=== PATIENT | female | born 1980 | race Caucasian/White ===

== ENCOUNTER 2016-07-04 19:24 | Inpatient (IN) | payer OTHER ==
[~2016-07-04] VITALS: Ht 170.1 cm; Wt 52.2 kg
--- NOTE | ~2016-07-04 | EKG ---
[place], [place] ELECTROCARDIOGRAM REPORT NAME: MIKE KYLE UNIT #: [id number] ROOM: 502 DOCTOR: ELSIE BROCK MD BIRTHDATE: [birth year] DOS: 07/04/2016 TIME: 20:42 Normal sinus rhythm at rate 91, normal electrocardiogram. ELSIE BROCK MD CM:EKGRPT:ELECTROCARDIOGRAM REPORT [id number] ELSIE BROCK MD
[~2016-07-04 19:24] MED LIST: ATIVAN; ATIVAN1 MG PO; ATIVAN2 MG PO; B-1100 MG PO; BACTRIM DS 8001 TA1 PO; CATAFLAM50 MG PO; DILANTIN100 MG PO; KLONOPIN1 MG PO; NAPROSYN500 MG PO; PROZAC20 MG; VICODIN 5/500 505 MG PO
[2016-07-04 19:35] VITALS: BP 127/94
[2016-07-04 20:12] LABS: BASO % 0.6 % (0.0-1.0); EOS # 0.1 10*3/uL (0.0-0.4); EOS % 1.2 % (1.0-4.0); HEMATOCRIT 36.5 % (37.0-47.0); HEMOGLOBIN 12.7 g/dl (12.0-16.0); LYMPH % 41.5 % (27.0-41.0); MEAN CELL VOLUME 92.4 fl (81.0-99.0); MEAN CORPUSCULAR HGB 32.2 pg (27.0-31.0); MEAN CORPUSCULAR HGB CONC 34.8 g/dl (33.0-37.0); MONO # 0.4 10*3/uL (0.1-1.0); MONO % 7.5 % (3.0-9.0); NEUT # 2.4 10*3/uL (2.3-7.9); PLATELET COUNT AUTOMATED 226 10*3/uL (130-400); RED BLOOD COUNT 3.95 10*6/uL (4.10-5.10); RED CELL DISTRI WIDTH 14.2 % (0-14.5); WHITE BLOOD COUNT 4.9 10*3/uL (4.8-10.8)
[2016-07-04 20:30] LABS: ALBUMIN 3.5 gm/dl (3.1-4.5); ALKALINE PHOSPHATASE 82 U/L (45-117); BILIRUBIN, TOTAL 0.3 mg/dl (0.2-1.0); BUN 8 mg/dl (7-24); CARBON DIOXIDE 27 mmol/L (21-32); CHLORIDE 109 mmol/L (98-107); EST GLOM FILT AFRICAN AMERICAN > 60 ml/min; GLUCOSE 128 mg/dL (65-99); POTASSIUM 3.6 mmol/L (3.5-5.1); SGOT/AST 90 IU/L (3-35); SGPT/ALT 83 U/L (12-78); SODIUM 144 mmol/L (136-145)
[2016-07-04 21:28] LABS: INTERNATIONAL NORM RATIO 0.9 (2.0-3.5); PROTHROMBIN TIME 9.4 SECONDS (9.0-12.4)
[2016-07-04 22:00] VITALS: BP 124/76
[2016-07-04 23:55] VITALS: BP 124/76
[2016-07-05 06:08] LABS: BILIRUBIN NEGATIVE (NEGATIVE); BLOOD NEGATIVE (NEGATIVE); CLARITY CLEAR (CLEAR); COLOR YELLOW (YELLOW); GLUCOSE NEGATIVE (NEGATIVE); KETONE NEGATIVE (NEGATIVE); LEUKO ESTERASE NEGATIVE (NEGATIVE); NITRITE NEGATIVE (NEGATIVE); PROTEIN NEGATIVE (NEGATIVE); SPECIFIC GRAVITY <= 1.005 (1.005-1.030); UROBILINOGEN 0.2 E.U./dl (0.2-1.0)
[2016-07-05 06:15] LABS: URINE REFLEX COMMENT NO (NO); WBC 0-2 wbc/hpf (0-5)
[2016-07-05 06:29] LABS: URINE AMPHETAMINES < 1000 (1000ng/ml)
[2016-07-05 06:31] LABS: URINE BARBITURATES < 200 (200ng/ml); URINE COCAINE < 300 (300ng/ml)
== END 2016-07-05 08:00 | disposition left against medical advice (07) | DRG 894 ==
LOC: ED 19:24 → EDHOLD 20:14 → 5E 20:14
PROVIDERS: Registered Nurse; Student in an Organized Health Care Education/Training Program
DX: F10.239 Alcohol dependence with withdrawal, unspecified (principal); E83.51 Hypocalcemia; F19.10 Other psychoactive substance abuse, uncomplicated; R00.0 Tachycardia, unspecified; F17.200 Nicotine dependence, unspecified, uncomplicated; Z88.0 Allergy status to penicillin; Z88.8 Allergy status to other drugs, medicaments and biological substances; Z91.040 Latex allergy status

== ENCOUNTER 2019-09-23 23:50 | Emergency (ER) | payer OTHER ==
[2019-09-23 23:54] VITALS: BP 127/85
== END 2019-09-24 01:08 | disposition home or self-care (01) ==
LOC: ED 23:50
DX: S71.112A Laceration without foreign body, left thigh, initial encounter (principal); F10.129 Alcohol abuse with intoxication, unspecified; Z88.8 Allergy status to other drugs, medicaments and biological substances; Z79.899 Other long term (current) drug therapy; W25.XXXA Contact with sharp glass, initial encounter; Y93.89 Activity, other specified; Y92.89 Other specified places as the place of occurrence of the external cause; Y99.8 Other external cause status

== ENCOUNTER 2019-10-08 14:16 | Inpatient (IN) | payer OTHER ==
[~2019-10-08] VITALS: Ht 170.1 cm; Wt 59.6 kg
[2019-10-08 14:16] VITALS: BP 112/82
[2019-10-08 15:45] VITALS: BP 115/77
[2019-10-08 15:55] LABS: ALBUMIN 3.7 gm/dl (3.1-4.5); ALKALINE PHOSPHATASE 75 U/L (45-117); BUN 8 mg/dl (7-24); CHLORIDE 106 mmol/L (98-107); CREATININE 0.46 mg/dL (0.55-1.02); POTASSIUM 4.1 mmol/L (3.5-5.1); SGOT/AST 148 IU/L (3-35); SGPT/ALT 82 U/L (12-78); SODIUM 139 mmol/L (136-145); TOTAL PROTEIN 8.6 gm/dL (6.4-8.2)
[2019-10-08 16:20] LABS: BASO % 0.4 % (0.0-1.0); EOS % 0.2 % (1.0-4.0); LYMPH # 1.6 10*3/uL (1.3-4.4); LYMPH % 35.2 % (27.0-41.0); MEAN CELL VOLUME 96.7 fl (81.0-99.0); MEAN CORPUSCULAR HGB 31.6 pg (27.0-31.0); MEAN CORPUSCULAR HGB CONC 32.7 g/dl (33.0-37.0); MEAN PLATELET VOLUME 9.7 fl (9.6-12.3); MONO # 0.3 10*3/uL (0.1-1.0); MONO % 5.5 % (3.0-9.0); NEUT # 2.7 10*3/uL (2.3-7.9); NEUT % 58.5 % (47.0-73.0); PLATELET COUNT AUTOMATED 115 10*3/uL (130-400); RED BLOOD COUNT 4.24 10*6/uL (4.10-5.10); RED CELL DISTRI WIDTH 17.1 % (0-14.5); WHITE BLOOD COUNT 4.6 10*3/uL (4.8-10.8)
[2019-10-08 16:53] LABS: BILIRUBIN NEGATIVE (NEGATIVE); BLOOD 1+ (NEGATIVE); CLARITY CLEAR (CLEAR); COLOR YELLOW (YELLOW); GLUCOSE NEGATIVE (NEGATIVE); KETONE NEGATIVE (NEGATIVE); LEUKO ESTERASE NEGATIVE (NEGATIVE); NITRITE NEGATIVE (NEGATIVE); UROBILINOGEN 0.2 E.U./dl (0.2-1.0)
[2019-10-08 16:55] LABS: URINE AMPHETAMINES < 1000 (1000ng/ml); URINE BARBITURATES < 200 (200ng/ml); URINE BENZODIAZEPINES < 200 (200ng/ml); URINE CANNABINOIDS (THC) < 50 (50ng/ml); URINE COCAINE < 300 (300ng/ml); URINE METHADONE < 300 (300ng/ml); URINE OPIATES < 300 (300ng/ml)
[2019-10-08 16:56] LABS: URINE PHENCYCLIDINE < 25 (25ng/ml)
[2019-10-08 16:57] VITALS: BP 111/75
[2019-10-08 17:13] LABS: BACTERIA 1+
[2019-10-08 17:15] VITALS: BP 110/74
[2019-10-08 18:12] VITALS: BP 110/82
--- NOTE | 2019-10-08 18:51 | NUR ---
HEALING LACERATION AND SUTURES TO LT UPPER THIGH. SHE STATES SUTURES ARE TO COME OUT IN 1-2 DAYS. SHE IS REFUSING WOUND PHOTOS. OLD HEALING ABRASION TO CHEEK.
--- NOTE | 2019-10-08 19:04 | NUR ---
PT AWAITING ADMISSION TO ROOM 526.
[2019-10-08 19:09] LABS: LIPASE 425 U/L (73-393)
[2019-10-08 19:11] LABS: BETA-HCG, QUANT < 1.0 mIU/mL (1-3)
--- NOTE | 2019-10-08 19:25 | NUR ---
DR WILSON NOTIFIED OF PT ELEVATED TROPONIN LEVEL.
[2019-10-08 19:45] VITALS: BP 111/75
--- NOTE | 2019-10-08 19:45 | NUR ---
A 39, admitted to 5E, under the services of BLAISE Almazan DO with a diagnosis of ALCOHOL INTOXICATION, TACHYCARDIA. Chief complaint is ETOH INTOXICATION. Patient arrived via bed from ER. Monitor applied. Initial assessment completed. Vital signs taken and recorded. BLAISE ALMAZAN DO notified of admission to the unit. Orders received. See assessment for past medical history, medications and allergies. Patient and/or family oriented to unit. [address] visitation policy reviewed. Clothing/patient valuable form completed. NADEEM NELSON
[2019-10-08] MEDS ORDERED: TOPAMAX100 M1 PO (22:28)
--- NOTE | 2019-10-08 23:19 | NUR ---
DR. WILSON NOTIFIED OF CRITICAL TROPONIN OF 0.060.
[2019-10-09] VITALS: BP 112/78
--- NOTE | 2019-10-09 00:55 | NUR ---
DR5. KATIE NOTIFIED OF CRITICAL TROPONIN OF 0.122.
--- NOTE | 2019-10-09 01:10 | NUR ---
DR. MCKEON'S ANSWERING SERVICE NOTIFIED OF CONSULT FOR PATIENT FOR ELEVATED TROPONINS AND ALCOHOL WITHDRAWAL.
--- NOTE | 2019-10-09 03:35 | NUR ---
DR. WILSON NOTIFIED OF CRITICAL TROPONIN OF 0.099.
[2019-10-09 06:38] LABS: BASO % 0.3 % (0.0-1.0); EOS % 0.9 % (1.0-4.0); HEMATOCRIT 33.2 % (37.0-47.0); LYMPH # 1.3 10*3/uL (1.3-4.4); LYMPH % 40.1 % (27.0-41.0); MEAN CORPUSCULAR HGB 31.6 pg (27.0-31.0); MEAN CORPUSCULAR HGB CONC 34.3 g/dl (33.0-37.0); MONO # 0.4 10*3/uL (0.1-1.0); MONO % 11.8 % (3.0-9.0); NEUT # 1.5 10*3/uL (2.3-7.9); NEUT % 46.6 % (47.0-73.0); PLATELET COUNT AUTOMATED 100 10*3/uL (130-400); RED BLOOD COUNT 3.61 10*6/uL (4.10-5.10); RED CELL DISTRI WIDTH 16.5 % (0-14.5); WHITE BLOOD COUNT 3.2 10*3/uL (4.8-10.8)
[2019-10-09 06:45] LABS: ACT PARTIAL THROMBO TIME 23.1 SECONDS (20.0-32.1); INTERNATIONAL NORM RATIO 0.9 (2.0-3.5)
[2019-10-09 07:07] LABS: ALBUMIN 3.1 gm/dl (3.1-4.5); ALKALINE PHOSPHATASE 59 U/L (45-117); BUN 8 mg/dl (7-24); CHLORIDE 103 mmol/L (98-107); CHOLESTEROL 251 mg/dL (<200); CREATININE 0.46 mg/dL (0.55-1.02); FREE T4 0.71 ng/dl (0.76-1.46); HDL CHOLESTEROL 80 mg/dl (40-60); LDL CHOLESTEROL 154 mg/dL (9-159); POTASSIUM 3.2 mmol/L (3.5-5.1); SGOT/AST 96 IU/L (3-35); SGPT/ALT 67 U/L (12-78); SODIUM 137 mmol/L (136-145); TOTAL PROTEIN 7.1 gm/dL (6.4-8.2); TRIGLYCERIDES 85 mg/dl (<150); VLDL CHOLESTEROL 17 mg/dL (6-40)
[2019-10-09 07:12] LABS: THYROID STIM HORMONE (HS) 0.923 uIU/ml (0.358-4.75)
--- NOTE | 2019-10-09 07:30 | NUR ---
TOOK OVER CARE OF PT AT THIS TIME. PT RESTING IN BED. IV FLUIDS INFUSING. HOB ELEVATED. RESPIRATIONS EASY AND UNLABORED ON ROOM AIR. PT STATES THAT SHE FEELS THAT SHE IS HAVING WITHDRAWAL SYMPTOMS. PT NOTIIFED THAT SHE IS DUE FOR ATIVAN AND THAT THIS NURSE WILL BE BACK INTO ROOM WITH MEDICATION. NO OTHER S/S OF DISTRESS NOTED. WILL CONTINUE TO MONITOR. SAFETY MEASURES IN PLACE. CALL LIGHT IN REACH.
[2019-10-09 08:00] VITALS: BP 130/96
--- NOTE | 2019-10-09 08:38 | NUR ---
PT GIVEN ZOFRAN VIA IV AND BENTYL AT THIS TIME FOR C/O NAUSEA AND STOMACH CRAMPS. WILL MONITOR FOR EFFECTIVENESS OF MEDICATION. PT RESTING; CALL LIGHT IN REACH.
--- NOTE | 2019-10-09 08:50 | NUR ---
ROBAXIN AND IBUPROFEN GIVEN FOR MUSCLE ACHES AND HEADACHE. WILL MONITOR FOR EFFECTIVENESS OF MEDICATION. CALL LIGHT IN REACH.
--- NOTE | 2019-10-09 09:08 | NUR ---
PHYSICAL THERAPY PT evaluation attempted, pt currently unavaliable at this time being seen by physician and nsg. Will attempt again at a later time. Thank you. Luis Felipe Hairston SPT [facility]
--- NOTE | 2019-10-09 09:10 | NUR ---
ATIVAN 1 MG VIA IV AT THIS TIME GIVEN FOR INCREASED ANXIETY AND INCREASED WITHDRAWAL S/S. WILL MONITOR FOR EFFECTIVENESS OF MEDICATION. IV FLUIDS INFUSING. WILL CONTINUE TO MONITOR. CALL LIGHT IN REACH.
--- NOTE | 2019-10-09 09:15 | NUR ---
OT NOTE Occupational therapy order received and chart reviewed. Attempted patient evaluation this AM however MD and nursing in room. Patient had complaints of dizziness and deferred therapy at this time. Will check back at a later time for completion of an OT evaluation. Thank you. Mechelle Stone, OTR/L
--- NOTE | 2019-10-09 09:38 | NUR ---
PT STATES THAT ZOFRAN AND BENTYL ARE SOMEWHAT EFFECTIVE. WILL MONITOR PT. CALL LIGHT IN REACH.
--- NOTE | 2019-10-09 09:50 | NUR ---
PT STATES THAT ROBAXIN AND IBUPROFEN ARE "SOMEWHAT EFFECTIVE".
--- NOTE | 2019-10-09 09:57 | NUR ---
PT REFUSING ORTHOSTATIC BLOOD PRESSURES AT THIS TIME DUE TO NOT FEELING WELL AND STATES THAT SHE IS "UNABLE TO SIT UP AT THIS TIME". WILL OBTAIN ORTHOSTATIC BLOOD PRESSURES WHEN PT AGREES. PT ALSO REFUSING SUTURE REMOVAL AT THIS TIME; WILL ATTEMPT SUTURE REMOVAL AT A LATER TIME TODAY.
--- NOTE | 2019-10-09 10:10 | NUR ---
IV ATIVAN EFFECTIVE AT THIS TIME.
--- NOTE | 2019-10-09 10:35 | NUR ---
PHYSICAL THERAPY Attempted to see pt later in the AM, per nurse pt still dizzy/nauseaated to defer therapy at this time and check back in the afternoon. Myra Cruz PT
--- NOTE | 2019-10-09 10:50 | NUR ---
OT NOTE Occupational therapy order received and chart reviewed. Discussed with nursing, patient is not approriate for an OT evaluation at this time due to increased dizziness and nausea with movement. Will check back later this date. Thank you. Mechelle Stone OTR/L
--- NOTE | 2019-10-09 11:50 | NUR ---
ZACHARY PARKER CT NOTIFIED THAT PT STATES THAT SHE IS UNABLE TO DRINK READI CAT. MANAGER [employer]LLIGENCE STATES TO NOTIFY PHYSICIAN OF THIS.
[2019-10-09 12:00] VITALS: BP 142/98
--- NOTE | 2019-10-09 12:00 | NUR ---
PT NOTIFIED THAT SHE IS NPO AT THIS TIME FOR CT OF ABDOMEN/PELVIS.
--- NOTE | 2019-10-09 12:09 | NUR ---
DR SCHNEIDER NOTIFIED THAT PT STATES THAT DOES NOT FEEL SHE IS ABLE TO DRINK READI CAT FOR CT OF ABDOMEN/PELVIS. PHYSICIAN STATES TO PLACE A ONE TIME DOSE OF 4 MG ZOFRAN VIA IV NOW, MEDICATE PT, AND THEN HAVE PT ATTEMPT TO DRINK READI CAT. WILL MEDICATE PT AND THEN GIVE PT READICAT.
--- NOTE | 2019-10-09 12:56 | NUR ---
PHYSICAL THERAPY PT evaluation attempted, pt not feeling well at this time, per nsg going to get a CT of abdomen to look for possible causes of the extreme nausea. Will attempt again at a later time/date. Thank you. Luis Felipe Hairston SPT [facility]
--- NOTE | 2019-10-09 13:03 | NUR ---
OT NOTE Occupational therapy order received and chart reviewed. Per discussion with patient, she is continuing to not feel well this afternoon. Per nurse, patient will be going for a CT of the abdomen soon. Will defer until tomorrow for an OT evaluation. Thank you. Mechelle Stone, OTR/L
--- NOTE | 2019-10-09 13:12 | NUR ---
Professor Of English in to talk to patient. Patient states lives at home with her boyfriend. There are basement steps in the home. Physician: Dr. Cates Pharmacy: [facility] Home health services: none Patient's level of ADLs: INDEPENDENT Patient has working utilities: yes DME: none Follow-up physician's appointment after d/c: will be made by the hospitalist nurse director upon discharge Does patient want to access PORTAL?: no Discharge plan discussed with patient. She lives at home with her boyfriend. She is independent in her ADLs and ambulation. Discussed [facility] and she states she has been following with a treatment program in [place] for about a month but she only got to see someone last week. She is unsure of the name. Discussed any home health care services that may be needed once she is discharged and she declines. When medically stable she will be discharged to home. She states at this time she is unsure of how she will get home. RANDALL PATRICK
--- NOTE | 2019-10-09 14:45 | NUR ---
ZACHARY FROM CT NOTIFIED THAT PHYSICIAN STATES THAT IT IS OKAY THAT PT DID NOT DRINK READI CAT BUT WOULD LIKE TO DO IV CONTRAST. PSYCHOLOGICAL AIDE STATES THAT CT ORDER NEEDS CHANGED TO CT OF ABD/PELVIS WITH CONTRAST. WILL PLACE APPROPRIATE ORDERS.
[2019-10-09 16:00] VITALS: BP 144/95
--- NOTE | 2019-10-09 16:22 | NUR ---
MOTRIN, BENTYL, AND ZOFRAN GIVEN FOR COMPLAITNS OF PAIN IN STOMACH, MUSCLE ACHES, AND NAUSEA. WILL MONITOR.
--- NOTE | 2019-10-09 16:45 | NUR ---
PATIENT REFUSING TO HAVE SUTURES REMOVED AT THIS TIME DUE TO FEELING NAUSEATED. WILL REATTEMPT LATER.
--- NOTE | 2019-10-09 17:22 | NUR ---
PER PATIENT, PRN MEDS HAVE BEEN EFFECTIVE. CALL LIGHT IS WITHIN REACH.
--- NOTE | 2019-10-09 17:45 | NUR ---
PATIENT REFUSING TO HAVE CT SCAN; ATTEMPTED TO NOTIFY THE DR BUT THEY DIDNT ANSWER.
[2019-10-09 20:00] VITALS: BP 137/97
--- NOTE | 2019-10-09 20:42 | NUR ---
PATIENT MEDICATED WITH ATIVAN 1MG IV FOR COMPLAINTS OF ANXIETY. WILL CONTINUE TO MONITOR. CALL LIGHT IN REACH.
--- NOTE | 2019-10-09 21:30 | NUR ---
ATIVAN EFFECTIVE. PATIENT SLEEPING AT THIS TIME.
[2019-10-09 21:41] LABS: BILIRUBIN NEGATIVE (NEGATIVE); CLARITY CLEAR (CLEAR); COLOR YELLOW (YELLOW); GLUCOSE NEGATIVE (NEGATIVE); KETONE TRACE (NEGATIVE)
[2019-10-09 21:42] LABS: BLOOD NEGATIVE (NEGATIVE); LEUKO ESTERASE NEGATIVE (NEGATIVE); NITRITE NEGATIVE (NEGATIVE); SPECIFIC GRAVITY 1.005 (1.005-1.030); UROBILINOGEN 0.2 E.U./dl (0.2-1.0)
[2019-10-09 21:46] LABS: BACTERIA TRACE; EPITHELIAL CELLS 0-2; RBC 0-2 rbc/hpf (0-2); WBC 0-2 wbc/hpf (0-5)
[2019-10-10] VITALS (7 sets, daily range): BP systolic 126–160; BP diastolic 80–107
--- NOTE | 2019-10-10 00:08 | NUR ---
PATIENT MEDICATED WITH ATIVAN FOR ANXIETY, ROBAXIN FOR MUSCLE PAIN AND MOTRIN FOR GENERALIZED PAIN. WILL MONITOR FOR EFFECTIVENESS. CALL LIGHT IN REACH.
--- NOTE | 2019-10-10 00:39 | NUR ---
ATIVAN, ROBAXIN AND MOTRIN EFFECTIVE. MEDICATED WITH IMODIUM 4MG FOR DIARRHEA AT THIS TIME. WILL CONTINUE TO MONITOR.
--- NOTE | 2019-10-10 05:41 | NUR ---
PATIENT PULLED IV OUT. REFUSES TO HAVE ANOTHER ONE STARTED AT THIS TIME. SAYS SHE IS FINALLY SLEEPING AND DOES NOT WANT BOTHERED. STATED SHE WOULD LET DAYLIGHT PUT ONE IN LATER. DR. WILSON NOTIFIED.
[2019-10-10 06:21] LABS: BASO % 0.3 % (0.0-1.0); EOS # 0.1 10*3/uL (0.0-0.4); EOS % 1.3 % (1.0-4.0); HEMATOCRIT 36.4 % (37.0-47.0); LYMPH # 0.8 10*3/uL (1.3-4.4); LYMPH % 22.1 % (27.0-41.0); MEAN CELL VOLUME 93.1 fl (81.0-99.0); MEAN CORPUSCULAR HGB 31.7 pg (27.0-31.0); MEAN CORPUSCULAR HGB CONC 34.1 g/dl (33.0-37.0); MEAN PLATELET VOLUME 10.1 fl (9.6-12.3); MONO # 0.3 10*3/uL (0.1-1.0); MONO % 7.5 % (3.0-9.0); NEUT # 2.6 10*3/uL (2.3-7.9); NEUT % 68.3 % (47.0-73.0); PLATELET COUNT AUTOMATED 102 10*3/uL (130-400); RED BLOOD COUNT 3.91 10*6/uL (4.10-5.10); RED CELL DISTRI WIDTH 16.2 % (0-14.5); WHITE BLOOD COUNT 3.8 10*3/uL (4.8-10.8)
[2019-10-10 06:41] LABS: BUN 6 mg/dl (7-24); CHLORIDE 104 mmol/L (98-107); CREATININE 0.46 mg/dL (0.55-1.02); POTASSIUM 3.4 mmol/L (3.5-5.1); SODIUM 133 mmol/L (136-145)
--- NOTE | 2019-10-10 08:12 | NUR ---
Shift chart check completed.
--- NOTE | 2019-10-10 08:59 | NUR ---
COMPLAIN OF WITHDRAWL SYMPTOMS, ANXIETY, COLD/HOT, TREMORS, ABDOMINAL PAIN/NAUSEA, MUSCLE ACHES. PT IV CAME OUT OVERNIGHT AND CONTINUES TO REFUSE IV AT THIS TIME. PRN MEDICATIONS THAT WERE AVAILABLE GIVEN: ROBAXIN/BENTYL. PHYSICIAN MADE AWARE PT REFUSE IV, REQUEST ORAL ZOFRAN. PT GIVEN SCHEDULED ORAL ATIVAN AT THIS TIME. PT STATES IF SHE FEELS SHE NEEDS IV ATIVAN, WILL BE OKAY TO HAVE IV PLACED.
--- NOTE | 2019-10-10 09:00 | NUR ---
CM in to see patient. No new needs or request at this time. Discussed home health care services and she declines. CM will continue to follow for any discharge planning needs. When medically stable she will be discharged to home.
--- NOTE | 2019-10-10 09:26 | NUR ---
PT CONTINUES TO REFUSE CT ABDOMEN. DR. SCHNEIDER IN TO TALK WITH PATIENT. WILL CANCEL TESTING AT THIS TIME
--- NOTE | 2019-10-10 10:03 | NUR ---
PT STATES PRN MEDICATIONS HELPING AT THIS TIME. NO OTHER NEEDS STATED BY PATIENT.
--- NOTE | 2019-10-10 10:35 | NUR ---
OT NOTE Occupational therapy order received and chart reviewed. Per discussion with the patient and nursing, patient has been independently completing ADLs, bathroom ADLs, and transfers within the room. No OT eval indicated this date. Will continue to follow patient during this hospital stay. Thank you. Mechelle Stone, OTR/L
--- NOTE | 2019-10-10 10:39 | NUR ---
PHYSICAL THERAPY PT evaluation attempted, pt deffered due feeling that she did not need services at this time. Per pt and nsg pt is up in room ambulating to bathroom on own. Plan to follow through care at hosptial if pts functional status declines. Thank you. Luis Felipe Hairston SPT [facility] PT
--- NOTE | 2019-10-10 12:57 | NUR ---
PT COMPLAIN OF ANXIETY AND NAUSEA. PRN MEDICATIONS GIVEN
--- NOTE | 2019-10-10 13:40 | NUR ---
PT STATES CAN TAKE SUTURES OUT SOMETIME TODAY, "JUST NOT NOW" EDUCATED PATIENT THAT IF SUTURES STAY IN TOO LONG, SKIN WILL GROW OVER AND MAKE REMOVAL MORE DIFFICULT. PT AGREES THAT THEY CAN COME OUT TODAY.
--- NOTE | 2019-10-10 13:42 | NUR ---
AFTERNOON BLOOD PRESSURE ELEVATED. PT REQUESTED TO "WAIT A LITTLE LONGER" TO RECHECK MANUAL BLOOD PRESSURE "UNTIL I FEEL BETTER"
--- NOTE | 2019-10-10 13:43 | NUR ---
PT STATES PRN MEDICATIONS "GENNARO EFFECTIVE"
--- NOTE | 2019-10-10 17:07 | NUR ---
PT COMPLAIN OF STOMACH PAINS, MUSCLE ACHES, PRN MEDICATIONS GIVEN.
--- NOTE | 2019-10-10 18:00 | NUR ---
PT STATES MEDICATIONS EFFECTIVE "A LITTLE BIT". NO OTHER NEEDS STATED AT THIS TIME
--- NOTE | 2019-10-10 19:30 | NUR ---
IN TO ASSESS PATIENT AT THIS TIME. STATES THAT SHE IS FEELING "FAIRLY WELL". ASSESSMENT IS NEGATIVE OTHER THAN PATIENT COMPLAINT OF ABDOMINAL PAIN, BUT SHE STATES THIS "HAPPENS ALL THE TIME" DUE TO HER "OVARIAN CYSTS" AND "GOES AWAY IN A WEEK OR SO". WILL CONTINUE TO MONITOR AND REASSESS. NO TREMORS NOTED ON ASSESSMENT, PATIENT LAYING COMFORTABLE IN BED. STILL REFUSING SUTURE REMOVAL AT THIS TIME AND STATES THEY CAN DO IT "BEFORE SHE IS DISCHARGED".
--- NOTE | 2019-10-10 22:51 | NUR ---
ATICAN, BENTYL, AND ROBAXIN ADMINISTERED FOR PT C/O ANXIOUSNESS, MUSCLE CRAMPS, AND STOMACH CRAMPS. WILL MONITOR.
--- NOTE | 2019-10-10 23:50 | NUR ---
PT ASLEEP AT THIS TIME. NO S/S OF DISCOMFORT OR DISTRESS. WILL MONITOR.
[2019-10-11] VITALS: BP 118/83
[2019-10-11 07:19] LABS: BASO % 0.5 % (0.0-1.0); EOS # 0.1 10*3/uL (0.0-0.4); EOS % 1.7 % (1.0-4.0); HEMATOCRIT 39.1 % (37.0-47.0); LYMPH # 0.9 10*3/uL (1.3-4.4); LYMPH % 21.5 % (27.0-41.0); MEAN CELL VOLUME 93.3 fl (81.0-99.0); MEAN CORPUSCULAR HGB 31.3 pg (27.0-31.0); MEAN CORPUSCULAR HGB CONC 33.5 g/dl (33.0-37.0); MEAN PLATELET VOLUME 10.9 fl (9.6-12.3); MONO # 0.3 10*3/uL (0.1-1.0); MONO % 7.8 % (3.0-9.0); NEUT # 2.8 10*3/uL (2.3-7.9); NEUT % 67.8 % (47.0-73.0); PLATELET COUNT AUTOMATED 106 10*3/uL (130-400); RED BLOOD COUNT 4.19 10*6/uL (4.10-5.10); RED CELL DISTRI WIDTH 15.9 % (0-14.5); WHITE BLOOD COUNT 4.1 10*3/uL (4.8-10.8)
[2019-10-11 07:34] LABS: BUN 7 mg/dl (7-24); CHLORIDE 106 mmol/L (98-107); CREATININE 0.48 mg/dL (0.55-1.02); SODIUM 134 mmol/L (136-145)
[2019-10-11 08:00] VITALS: BP 110/88
--- NOTE | 2019-10-11 08:29 | NUR ---
MEDICATED WITH PRN PO MOTRIN, ROBAXIN, VISTARIL AND BENTYL FOR HEADACHE, ABDOMINAL PAIN AND ANXIETY
--- NOTE | 2019-10-11 09:20 | NUR ---
PRN PO MOTRIN AND ROBAXIN EFFECTIVE, BENTYL EFFECTIVE, VISTARIL NOT EFFECTIVE, MEDICATED WITH PO ATIVAN X 1 ORDERED FOR ANXIETY.
--- NOTE | 2019-10-11 10:00 | NUR ---
PRN PO ATIVAN EFFECTIVE, PER PATIENT.
--- NOTE | 2019-10-11 10:00 | NUR ---
SUTURES TO LEFT POSTERIOR THIGH REMOVED, STERI-STRIPS IN PLACE. WOUND WELL APPROXIMATED. PATIENT REFUSES DISCHARGE WOUND PHOTOGRAPH.
--- NOTE | 2019-10-11 12:33 | NUR ---
Discharge instructions reviewed with patient. Patient receptive and verbalizes understanding. Follow-up care arranged. Written instructions given to patient. SHE IS CALLING FOR A RIDE HOME. SHARIF CAMPOS
--- NOTE | 2019-10-11 13:05 | NUR ---
PATIENT DISCHARGED TO ER FRONT LOBBY, ACCOMPANIED BY RN, FOR TRANSPORT HOME BY PRIVATE VEHICLE WITH HER FAMILY.
--- NOTE | 2019-10-11 16:54 | NUR ---
1100 - 9 sutures were removed from incision site on left thigh. sutures intact. site free from s/s of infection and no dehiscense
== END 2019-10-11 13:05 | disposition home or self-care (01) | DRG 241 ==
LOC: ED 14:16 → EDHOLD 18:18 → 5E 18:25 → EDHOLD 18:59 → 5E 19:08
PROVIDERS: Emergency Medicine; Hospitalist; Social Worker Clinical; ADMIT Internal Medicine
DX: K29.70 Gastritis, unspecified, without bleeding (principal); Y90.8 Blood alcohol level of 240 mg/100 ml or more; E83.51 Hypocalcemia; R00.0 Tachycardia, unspecified; R74.0 Nonspecific elevation of levels of transaminase and lactic acid dehydrogenase [LDH]; F10.929 Alcohol use, unspecified with intoxication, unspecified; G43.909 Migraine, unspecified, not intractable, without status migrainosus; F41.9 Anxiety disorder, unspecified; F17.210 Nicotine dependence, cigarettes, uncomplicated; G93.41 Metabolic encephalopathy; R10.9 Unspecified abdominal pain; L90.5 Scar conditions and fibrosis of skin; Z88.0 Allergy status to penicillin; Z88.8 Allergy status to other drugs, medicaments and biological substances; Z91.040 Latex allergy status; Z81.8 Family history of other mental and behavioral disorders; Z82.49 Family history of ischemic heart disease and other diseases of the circulatory system

== ENCOUNTER 2020-04-17 00:05 | Emergency (ER) | payer OTHER ==
[~2020-04-17] VITALS: Ht 170.1 cm; Wt 59.5 kg
[~2020-04-17 00:05] MED LIST changes: +TOPAMAX100 M1 PO
[2020-04-17 00:40] LABS: BASO % 0.7 % (0.0-1.0); EOS % 0.3 % (1.0-4.0); HEMATOCRIT 37.7 % (37.0-47.0); LYMPH # 2.7 10*3/uL (1.3-4.4); LYMPH % 43.6 % (27.0-41.0); MEAN CORPUSCULAR HGB 32.2 pg (27.0-31.0); MEAN CORPUSCULAR HGB CONC 34.2 g/dl (33.0-37.0); MEAN PLATELET VOLUME 9.4 fl (9.6-12.3); MONO # 0.7 10*3/uL (0.1-1.0); MONO % 11.1 % (3.0-9.0); NEUT # 2.7 10*3/uL (2.3-7.9); NEUT % 44.1 % (47.0-73.0); PLATELET COUNT AUTOMATED 268 10*3/uL (130-400); RED BLOOD COUNT 4.01 10*6/uL (4.10-5.10); RED CELL DISTRI WIDTH 13.7 % (0-14.5); WHITE BLOOD COUNT 6.1 10*3/uL (4.8-10.8)
[2020-04-17 00:56] LABS: ALBUMIN 3.6 gm/dl (3.1-4.5); ALKALINE PHOSPHATASE 81 U/L (45-117); BUN 9 mg/dl (7-24); CHLORIDE 108 mmol/L (98-107); CREATININE 0.54 mg/dL (0.55-1.02); LIPASE 292 U/L (73-393); POTASSIUM 4.1 mmol/L (3.5-5.1); SGOT/AST 125 IU/L (3-35); SGPT/ALT 100 U/L (12-78); SODIUM 144 mmol/L (136-145); TOTAL PROTEIN 7.6 gm/dL (6.4-8.2)
[2020-04-17 05:25] VITALS: BP 120/64
[2020-04-17 08:22] LABS: BILIRUBIN Negative (Negative); BLOOD 3+ (Negative); CLARITY Clear (Clear); COLOR Yellow (Yellow); GLUCOSE Negative (Negative); KETONE Negative (Negative); LEUKO ESTERASE Negative (Negative); NITRITE Negative (Negative)
[2020-04-17 08:29] LABS: URINE AMPHETAMINES < 1000 (1000ng/ml); URINE BARBITURATES < 200 (200ng/ml); URINE BENZODIAZEPINES < 200 (200ng/ml); URINE CANNABINOIDS (THC) < 50 (50ng/ml); URINE COCAINE < 300 (300ng/ml); URINE METHADONE < 300 (300ng/ml); URINE OPIATES < 300 (300ng/ml)
[2020-04-17 08:30] LABS: URINE PHENCYCLIDINE < 25 (25ng/ml)
[2020-04-17 08:38] LABS: BACTERIA 2+; MUCOUS 2+
== END 2020-04-17 09:25 | disposition home or self-care (01) ==
LOC: ED 00:05
PROVIDERS: Emergency Medicine; Internal Medicine
DX: F10.129 Alcohol abuse with intoxication, unspecified (principal); F32.9 Major depressive disorder, single episode, unspecified; R56.9 Unspecified convulsions; Z88.0 Allergy status to penicillin; Z88.8 Allergy status to other drugs, medicaments and biological substances; Z91.040 Latex allergy status; Z79.899 Other long term (current) drug therapy; Z98.890 Other specified postprocedural states; Y90.8 Blood alcohol level of 240 mg/100 ml or more

== ENCOUNTER 2021-12-14 23:41 | Emergency (ER) | payer SELFPAY ==
[~2021-12-14] VITALS: Ht 167.6 cm; Wt 63.5 kg
[2021-12-15 01:25] LABS: BILIRUBIN Negative (Negative); BLOOD Negative (Negative); CLARITY Clear (Clear); COLOR Yellow (Yellow); GLUCOSE Negative (Negative); KETONE Negative (Negative); LEUKO ESTERASE Negative (Negative); NITRITE Negative (Negative); PH 5.5 (4.5-8.0); SPECIFIC GRAVITY <= 1.005 (1.001-1.030); UROBILINOGEN 0.2 E.U./dl (0.0-1.0)
[2021-12-15 01:32] LABS: WBC 0-2 wbc/hpf (0-5)
[2021-12-15 02:14] LABS: BASO % 0.4 % (0.0-1.0); EOS # 0.1 10*3/uL (0.0-0.4); EOS % 1.3 % (1.0-4.0); HEMATOCRIT 37.9 % (37.0-47.0); LYMPH # 1.9 10*3/uL (1.3-4.4); MEAN CELL VOLUME 97.2 fl (81.0-99.0); MEAN CORPUSCULAR HGB 32.8 pg (27.0-31.0); MEAN CORPUSCULAR HGB CONC 33.8 g/dl (33.0-37.0); MEAN PLATELET VOLUME 11.1 fl (9.6-12.3); MONO # 0.6 10*3/uL (0.1-1.0); NEUT # 4.1 10*3/uL (2.3-7.9); NEUT % 60.4 % (47.0-73.0); PLATELET COUNT AUTOMATED 206 10*3/uL (130-400); RED CELL DISTRI WIDTH 13.2 % (0-14.5); WHITE BLOOD COUNT 6.8 10*3/uL (4.8-10.8)
[2021-12-15 02:32] LABS: ALKALINE PHOSPHATASE 72 U/L (45-117); BUN 13 mg/dl (7-24); CHLORIDE 113 mmol/L (98-107); CREATININE 0.61 mg/dL (0.55-1.02); POTASSIUM 5.2 mmol/L (3.5-5.1); SGOT/AST 161 IU/L (3-35); SGPT/ALT 155 U/L (12-78); SODIUM 138 mmol/L (136-145); TOTAL PROTEIN 7.9 gm/dL (6.4-8.2)
[2021-12-15 04:04] VITALS: BP 121/68
== END 2021-12-15 04:50 | disposition home or self-care (01) ==
LOC: ED 23:41
PROVIDERS: Internal Medicine
DX: R10.9 Unspecified abdominal pain (principal); M54.50 Low back pain, unspecified; R11.0 Nausea; F41.9 Anxiety disorder, unspecified; R79.89 Other specified abnormal findings of blood chemistry; Z88.0 Allergy status to penicillin; Z91.040 Latex allergy status; Z88.8 Allergy status to other drugs, medicaments and biological substances; F17.200 Nicotine dependence, unspecified, uncomplicated

== ENCOUNTER 2023-10-09 12:13 | Emergency (ER) | payer OTHER ==
[~2023-10-09] VITALS: Ht 170.1 cm; Wt 54.0 kg
[2023-10-09 12:59] VITALS: BP 133/88
[2023-10-09 14:08] LABS: BASO # 0.1 10*3/uL (0.0-0.1); BASO % 0.9 % (0.0-1.0); EOS # 0.1 10*3/uL (0.0-0.4); EOS % 1.8 % (1.0-4.0); HEMATOCRIT 36.1 % (37.0-47.0); LYMPH # 2.2 10*3/uL (1.3-4.4); LYMPH % 31.4 % (27.0-41.0); MEAN CELL VOLUME 94.3 fl (81.0-99.0); MEAN CORPUSCULAR HGB 29.2 pg (27.0-31.0); MEAN PLATELET VOLUME 9.2 fl (9.6-12.3); MONO # 0.7 10*3/uL (0.1-1.0); MONO % 9.7 % (3.0-9.0); NEUT # 3.8 10*3/uL (2.3-7.9); NEUT % 54.1 % (47.0-73.0); PLATELET COUNT AUTOMATED 251 10*3/uL (130-400); RED BLOOD COUNT 3.83 10*6/uL (4.10-5.10); RED CELL DISTRI WIDTH 18.6 % (0-14.5)
[2023-10-09 14:28] LABS: BUN 9 mg/dl (9-23); CHLORIDE 108 mmol/L (98-107); CPK 57 U/L (34-171); POTASSIUM 3.6 mmol/L (3.4-5.1)
== END 2023-10-09 15:08 | disposition home or self-care (01) ==
LOC: ED 12:13
PROVIDERS: Nurse Practitioner Family
DX: Z04.3 Encounter for examination and observation following other accident (principal); F41.9 Anxiety disorder, unspecified; G43.909 Migraine, unspecified, not intractable, without status migrainosus; F17.210 Nicotine dependence, cigarettes, uncomplicated; Z88.0 Allergy status to penicillin; Z91.040 Latex allergy status; Z88.1 Allergy status to other antibiotic agents; Z79.899 Other long term (current) drug therapy; Z98.890 Other specified postprocedural states; W18.09XA Striking against other object with subsequent fall, initial encounter; Y93.89 Activity, other specified; Y92.89 Other specified places as the place of occurrence of the external cause; Y99.8 Other external cause status